=== PATIENT | female | born 1955 | race Caucasian/White ===

== ENCOUNTER 2018-05-06 07:21 | Day surgery (SDC) | payer BC ==
[2018-05-06] MEDS ORDERED: PROPOFOL 500 MG/50 ML EMU IV ONE ×4 (08:17→08:37)
[2018-05-06 09:01] VITALS: O2SAT 96
[2018-05-06] MEDS ORDERED: ONDANSETRON HCL 4 MG/2 ML SOL ONE (09:03)
[2018-05-06 09:17] VITALS: BP 114/71; PULSE 55; RESP 20; TEMP 98.1
== END 2018-05-06 09:30 | disposition home or self-care (01) ==
LOC: SURG 07:21
PROVIDERS: ATTEND Surgery
DX: Z12.11 Encounter for screening for malignant neoplasm of colon (principal); Z85.038 Personal history of other malignant neoplasm of large intestine; K57.32 Diverticulitis of large intestine without perforation or abscess without bleeding; Z98.0 Intestinal bypass and anastomosis status
CPT/HCPCS: J2405; J2704

== ENCOUNTER 2018-12-22 20:00 | Observation (INO) | payer BC ==
[2018-12-22] MEDS ORDERED: NITROGLYCERIN 0.4 MG TAB SL ONE (20:06)
[2018-12-22] MEDS ORDERED: SODIUM CHLORIDE 0.9% FLUSH 10 ML SOL IV PRN (20:06)
[2018-12-22] MEDS ORDERED: MORPHINE SULFATE 10 MG/ML SOL IV PRN (20:06)
[2018-12-22] MEDS: NITROGLYCERIN 0.4 MG TAB SL PRN ×2 (20:08→20:34)
[2018-12-22 20:14] LABS: BASOPHILS % (AUTO) 1 % (0-3); EOSINOPHILS % (AUTO) 2 % (0-9); HEMATOCRIT 51 % (35-47); MEAN CORPUSCULAR HEMOGLOBIN 26.1 pg (27.0-32.0); MEAN CORPUSCULAR HGB CONC 31.4 gm/dl (32.0-36.0); MEAN CORPUSCULAR VOLUME 83 fL (81-99); MONOCYTES % (AUTO) 7.5 % (0-12); NEUTROPHILS % (AUTO) 63.8 % (37-80)
[2018-12-22 20:21] LABS: INR 0.96 (0.86-1.12)
[2018-12-22 20:26] LABS: ALBUMIN 3.5 gm/dl (3.4-5.0); ALKALINE PHOSPHATASE 191 IU/L (46-116); ALT 66 IU/L (14-63); AST 98 IU/L (15-37); BILIRUBIN,TOTAL 0.6 mg/dl (0.2-1.0); BLOOD UREA NITROGEN 32 mg/dl (7-18); CALCIUM 9.7 mg/dl (8.5-10.1); CARBON DIOXIDE 29.9 mEq/L (21-32); CHLORIDE 101 mMol/L (98-107); CREATINE KINASE 86 U/L (26-192); CREATININE 1.33 mg/dl (0.60-1.00); GLUCOSE 124 mg/dl (74-106); POTASSIUM 3.1 mMol/L (3.5-5.1); SODIUM 141 mMol/L (136-145); TOTAL PROTEIN 7.3 gm/dl (6.4-8.2); TROP I < 0.017 ng/ml (0.000-0.056)
[2018-12-22] MEDS ORDERED: POTASSIUM CHLORIDE 2 MEQ/ML 10 MEQ, LIDOCAINE HCL 1% MDV 2 ML in SODIUM CHLORIDE 0.9% 1... IV ONE (20:48)
[2018-12-22] MEDS ORDERED: KETOROLAC TROMETHAMINE 30 MG/ML SOL IV ONE (21:00)
[2018-12-22] MEDS ORDERED: SODIUM CHLORIDE 0.9% 1000ML 1,000 ML IV ONE (21:01)
[2018-12-22] MEDS ORDERED: ONDANSETRON 4 MG ODT BU ONE (21:02)
[2018-12-22] MEDS ORDERED: LIDOCAINE HCL 1% MPF 30 SOL ONE (21:06)
[2018-12-22] MEDS ORDERED: POTASSIUM CHLORIDE 2 MEQ/ML SOL IV ONE (21:06)
[2018-12-22] MEDS ORDERED: ONDANSETRON 4 MG ODT ONE (21:06)
[2018-12-22] MEDS ORDERED: KETOROLAC TROMETHAMINE 30 MG/ML SOL ONE (21:06)
[2018-12-22 23:15] LABS: APPEARANCE,URINE Slightly Cloudy; BILIRUBIN,URINE NEGATIVE (NEGATIVE); COLOR,URINE Yellow; GLUCOSE, URINE (UA) NEGATIVE (NEGATIVE); KETONES,URINE NEGATIVE (NEGATIVE); LEUKOCYTE ESTERASE ,URINE 1+ (NEGATIVE); NITRATE,URINE NEGATIVE (NEGATIVE); OCCULT BLOOD,URINE NEGATIVE (NEG-TRACE); UROBILINOGEN,URINE 0.2 (0.2-1.0 EU)
[2018-12-22 23:38] LABS: BACTERIA TRACE (< 1+); CRYSTALS NEGATIVE (0-3 AVE/HPF); EPITHELIAL CELLS NEGATIVE (SQUAMOUS); RBC,URINE NEG (0-3AV/HPF)
[2018-12-23] MEDS ORDERED: SODIUM CHLORIDE 0.9% FLUSH 10 ML SOL IV SCH (02:30)
[2018-12-23 07:52] LABS: ALBUMIN 3.1 gm/dl (3.4-5.0); BILIRUBIN,TOTAL 0.5 mg/dl (0.2-1.0); CALCIUM 8.9 mg/dl (8.5-10.1); CARBON DIOXIDE 29.5 mEq/L (21-32); CREATININE 1.35 mg/dl (0.60-1.00); POTASSIUM 4.1 mMol/L (3.5-5.1); TOTAL PROTEIN 6.4 gm/dl (6.4-8.2)
[2018-12-23 07:56] VITALS: BP 127/73; PULSE 51; RESP 16; TEMP 96.4; O2SAT 94
[2018-12-23] MEDS ORDERED: ASPIRIN EC 81 MG PO SCH (09:00)
== END 2018-12-23 09:50 | disposition home or self-care (01) ==
LOC: ED 20:00 → ACUTE CARE 22:05
PROVIDERS: ADMIT Surgery; ATTEND Surgery
DX: R07.9 Chest pain, unspecified (principal); E87.6 Hypokalemia; R06.02 Shortness of breath
CPT/HCPCS: 36415; 71045; 80053; 81001; 82550; 83880; 84484; 85025; 85610; 85730; 87077; 87088; 87186; 93005; 93012; 99285; J1885; J3480; A9270-GY; J2001